=== PATIENT | male | born 1970 | race Caucasian/White ===

== ENCOUNTER 2018-11-22 12:15 | Emergency (ER) | payer OTHER ==
[2018-11-22 12:22] VITALS: TEMP 98.5; BMI 30.6
[2018-11-22] MEDS ORDERED: ASPIRIN 81 MG CHEWABLE TABLETS PO ONE (13:05)
--- NOTE | 2018-11-22 13:11 | PDOC ---
History of Present Illness - General Chief Complaint: Pain Stated Complaint: L SIDE SHOULDER AND CHEST PAIN History Source: Patient Exam Limitations: No Limitations - History of Present Illness Initial Comments: 11/22/18 13:05 48 yo male h/o hypothyroid, HLD (on simvastatin) previous smoker quit 10 yrs ago here today for intermittent sharp left arm pain,and epsodic chest pain. pt states has been having intermittent chest pain in his left arm . not related to trauma or movement. awoke him from sleep, and had episode while driving. no nubmness. pain is sharp, unable to characterize. no cough no f/c no sob. no leg swelling. pt has had a prior cardiac work up of stress few years ago under dr joanne mcmullen. was normal. family history of mom with CABG in her 50s and maternal uncle with VT in 30's . no recent travel or h/o pe or dvt. sharp , not pleuritic 11/22/18 13:11 Past History - Past Medical History Allergies/Adverse Reactions: Allergies Allergy/AdvReac Type Severity Reaction Status Date / Time No Known Allergies Allergy Verified 11/22/18 12:17 COPD: No Hypercholesterolemia: Yes Thyroid Disease: Yes (hypo) - Suicide/Smoking/Psychosocial Hx Smoking History: Former smoker Have you smoked in the past 12 months: No If you are a former smoker, when did you quit?: 20 years ago Information on smoking cessation initiated: No Hx Alcohol Use: Yes (socially) Drug/Substance Use Hx: No Review of Systems - Review of Systems Constitutional: No: Chills, Diaphoresis, Fever HEENTM: No: Eye Pain Respiratory: No: Orthopnea, Shortness of Breath Cardiac (ROS): Yes: Chest Pain ABD/GI: No: Abdominal Distended : No: Burning, Dysuria, Discharge Musculoskeletal: No: Back Pain, Gout Integumentary: No: Bruising, Change in Color Neurological: No: Headache, Numbness, Paresthesia Psychiatric: No: Frequent Crying, Stressors, Sleep Pattern Change All Other Systems: Reviewed and Negative *Physical Exam - Vital Signs Last Vital Signs Temp Pulse Resp BP Pulse Ox 98.5 F 67 18 135/83 98 11/22/18 12:16 11/22/18 12:16 11/22/18 12:16 11/22/18 12:16 11/22/18 12:16 - Physical Exam Comments: 11/22/18 13:12 awake alert lungs clear bilaterally heart rrr no mrg abd soft nt no pulsatile mass. ext wwp no edema. pulses symmetric bilaterally. skin warm and dry. nuero alert oriented x 3. Moderate Sedation - Procedure Monitoring Vital Signs: Procedure Monitoring Vital Signs Temperature 98.5 F 11/22/18 12:16 Pulse Rate 67 11/22/18 12:16 Respiratory Rate 18 11/22/18 12:16 Blood Pressure 135/83 11/22/18 12:16 O2 Sat by Pulse Oximetry (%) 98 11/22/18 12:16 Heart Score/ECG Review #1 General ECG Interpretation: Sinus Rhythm, Normal Rate (63), Normal Intervals, No acute ischemic changes (TWI III only) ED Treatment Course - LABORATORY CBC & Chemistry Diagram: 11/22/18 13:37 11/22/18 13:37 - RADIOLOGY Radiology Studies Ordered: Category Date Time Status CHEST PA & LAT [RAD] Stat Radiology 11/22/18 13:04 Ordered Medical Decision Making - Medical Decision Making 11/22/18 13:16 48 yo male with h/o hld, hypothyroid, here with intermittent chest pain and left arm. pain. not reproducible on exam. differential VT acs, infection, msk pain ( although not reproducible), no risk factors for PE. plan ekg trop cbc cmp cxr. ekg asa. will require admission tele obs. 11/22/18 16:32 d/w dr olivera who will see pt this week. will refer to outpt cardiology given number for dr Silverio also. *DC/Admit/Observation/Transfer Diagnosis at time of Disposition: Chest pain - Discharge Dispostion Disposition: HOME Condition at time of disposition: Improved - Referrals Referrals: Venkat Ramírez MD [Staff Physician] - - Patient Instructions Printed Discharge Instructions: DI for Chest Pain Additional Instructions: your blood test today, ekg and cxr are unremarkable. you should follow up with a primary doctor this week as scheduled. return immediately for chest pain, shortness of breath or any concerns. you should take baby aspirin daily. also you should follow up with a typing teacher. see referral information for Dr Ramírez. call to schedule. - Post Discharge Activity
[2018-11-22] MEDS ORDERED: ASPIRIN 81 MG CHEWABLE TABLETS ONE (13:19)
[2018-11-22 13:42] LABS: BASO % 0.6 % (0-2.0); EOS % 1.6 % (0-4.5); HEMATOCRIT 45.2 % (35.4-49); HEMOGLOBIN 14.9 GM/dl (11.7-16.9); LYMPH % 26.4 % (8-40); MEAN CELL VOLUME 87.7 fl (80-96); MONO % 8.4 % (3.8-10.2); PLATELET COUNT 220 K/MM3 (134-434); RBC 5.15 M/mm3 (4.00-5.60); RDW 13.2 % (11.9-15.9); WHITE BLOOD COUNT 5.3 K/mm3 (4.0-10.8)
[2018-11-22 14:10] LABS: ALBUMIN 4.4 g/dl (3.4-5.0); ALK PHOS 62 U/L (45-117); ANION GAP 9 MMOL/L (8-16); BILIRUBIN,TOTAL 0.9 mg/dl (0.2-1); BLOOD UREA NITROGEN 16 mg/dl (7-18); CALCIUM 9.3 mg/dl (8.5-10); CHLORIDE 103 mmol/L (98-107); CO2 26 mmol/L (21-32); CREATININE 0.9 mg/dl (0.55-1.3); GLUCOSE,RANDOM 87 mg/dl (74-106); POTASSIUM 4.1 mmol/L (3.5-5.1); SGOT/AST 24 U/L (15-37); SGPT/ALT 26 U/L (13-61); SODIUM 138 mmol/L (136-145); TOT PROT 7.7 g/dl (6.4-8.2)
[2018-11-22 15:37] VITALS: BP 109/71; PULSE 64
--- NOTE | 2018-11-23 12:45 | EKG ---
Test Reason : Blood Pressure : / mmHG Vent. Rate : 063 BPM Atrial Rate : 063 BPM P-R Int : 194 ms QRS Dur : 088 ms QT Int : 398 ms P-R-T Axes : 018 030 013 degrees QTc Int : 407 ms POOR DATA QUALITY, INTERPRETATION MAY BE ADVERSELY AFFECTED NORMAL SINUS RHYTHM NORMAL ECG NO PREVIOUS ECGS AVAILABLE Confirmed by MACKENZIE QUINTANILLA MD ([id number]) on 11/23/2018 12:45:02 PM Referred By: CIRILO AGUILAR Confirmed By:MACKENZIE QUINTANILLA MD
== END 2018-11-22 16:48 | disposition home or self-care (01) ==
LOC: FER 12:15
DX: R07.9 Chest pain, unspecified (principal); E03.9 Hypothyroidism, unspecified; E78.5 Hyperlipidemia, unspecified
CPT/HCPCS: 36415; 71046-TC-FY; 80053; 84484; 85025; 93005; 99283-25

== ENCOUNTER 2020-04-01 08:27 | Day surgery (SDC) | payer OTHER ==
[2020-04-01] MEDS ORDERED: TAMSULOSIN HCL 0.4 MG CAP ONE (08:43)
[2020-04-01 08:54] VITALS: BMI 30.8
[2020-04-01] MEDS ORDERED: ROPIVACAINE HCL 0.5% 30ML VIAL ONE (09:35)
[2020-04-01] MEDS ORDERED: MIDAZOLAM HCL 2 MG/2 ML SINGLE DOSE VIAL ONE (09:35)
[2020-04-01] MEDS ORDERED: ROCURONIUM BROMIDE 50 MG/5 ML SYRINGE ONE ×2 (10:54→11:17)
[2020-04-01] MEDS ORDERED: PROPOFOL 20 ML ONE ×2 (10:54)
[2020-04-01] MEDS ORDERED: SUCCINYLCHOLINE CHLORIDE 200 MG/10 ML SYRINGE ONE (10:54)
[2020-04-01] MEDS ORDERED: fentaNYL CITRATE 250 MCG/5 ML VIAL ONE (10:54)
[2020-04-01] MEDS ORDERED: DEXAMETHASONE SOD PHOSPHATE 4 MG/1 ML VIAL ONE (11:04)
[2020-04-01] MEDS ORDERED: ceFAZolin SODIUM 1 GM VIAL ONE (11:04)
[2020-04-01] MEDS ORDERED: LIDOCAINE HCL 2% JELLY (5 ML/TUBE) ONE (11:04)
[2020-04-01] MEDS ORDERED: ONDANSETRON 4 MG/2 ML VIAL ONE (11:04)
[2020-04-01] MEDS ORDERED: LIDOCAINE HCL/PF 2% SDV 5ML VIAL ONE (11:04)
[2020-04-01] MEDS ORDERED: KETOROLAC TROMETHAMINE 30 MG/1 ML VIAL ONE (11:04)
[2020-04-01] MEDS ORDERED: NEOSTIGMINE METHYLSULFATE 0.5 MG/ML - 10 ML MDV ONE (12:01)
[2020-04-01] MEDS ORDERED: GLYCOPYRROLATE 0.2 MG/1 ML VIAL ONE (12:02)
[2020-04-01] MEDS ORDERED: ONDANSETRON 4 MG/2 ML VIAL IVPUSH PRN (13:06)
[2020-04-01] MEDS ORDERED: oxyCODONE HCL 5 MG TABLET PO PRN ×2 (13:06)
[2020-04-01] MEDS ORDERED: LACTATED RINGERS SOLUTION 1,000 ML IV SCH (13:15)
[2020-04-01 15:27] VITALS: TEMP 98.2
[2020-04-01 15:28] VITALS: BP 124/80; PULSE 64
== END 2020-04-01 15:37 | disposition home or self-care (01) ==
LOC: FASU 08:27
PROVIDERS: ATTEND Surgery
PROC: 0YUA4JZ Supplement Bilateral Inguinal Region with Synthetic Substitute, Percutaneous Endoscopic Approach (ICD-10-PCS; principal; 2020-04-01 10:55)
DX: K40.30 Unilateral inguinal hernia, with obstruction, without gangrene, not specified as recurrent (principal); K40.20 Bilateral inguinal hernia, without obstruction or gangrene, not specified as recurrent
CPT/HCPCS: 94760

== ENCOUNTER 2021-07-01 13:27 | Emergency (ER) | payer OTHER ==
[2021-07-01 13:50] VITALS: BMI 31.8
[2021-07-01] MEDS ORDERED: ASPIRIN 81 MG CHEWABLE TABLETS PO ONE (14:09)
[2021-07-01] MEDS ORDERED: ASPIRIN 81 MG CHEWABLE TABLETS ONE (14:18)
[2021-07-01 14:47] LABS: ALBUMIN 4.3 g/dl (3.4-5.0); BILIRUBIN,TOTAL 0.7 mg/dl (0.2-1); CALCIUM 9.1 mg/dl (8.5-10); CREATININE 0.9 mg/dl (0.55-1.3); TOT PROT 7.7 g/dl (6.4-8.2)
[2021-07-01 14:52] LABS: ACTIVATED PTT 29.8 SECONDS (25.2-36.5)
[2021-07-01 14:56] LABS: INR 1.08 (0.82-1.09); PROTHROMBIN TIME (PATIENT) 12.1 SEC (10.2-13.0)
[2021-07-01 14:59] LABS: BASO % 2.4 % (0-2.0); HEMATOCRIT 45.6 % (35.4-49); HEMOGLOBIN 15.2 GM/dl (11.7-16.9); MCH 29.3 pg (25.7-33.7); MCHC 33.3 g/dl (32.0-35.9); MEAN CELL VOLUME 87.8 fl (80-96); MEAN PLT VOLUME 7.5 fl (7.5-11.1); MONO % 10.1 % (3.8-10.2); NEUT % 64.5 % (42.8-82.8); PLATELET COUNT 217 10^3/uL (134-434); RBC 5.19 M/mm3 (4.00-5.60); RDW 13.5 % (11.9-15.9); WHITE BLOOD COUNT 5.7 K/mm3 (4.0-10.8)
[2021-07-02 06:50] VITALS: PULSE 66; TEMP 98
[2021-07-02 13:20] VITALS: BP 125/65
== END 2021-07-02 14:40 | disposition short-term general hospital (02) ==
LOC: FER 13:27
DX: I20.0 Unstable angina (principal)
CPT/HCPCS: 36415; 71046-TC-FY; 80053; 82550; 84484; 85025; 85610; 85730; 93005; 93010; 99284-25; C9803; U0003; U0005

== ENCOUNTER 2022-01-24 07:31 | Emergency (ER) | payer OTHER ==
[2022-01-24 07:52] VITALS: BP 140/92; PULSE 76; TEMP 97.9; BMI 34.9
[2022-01-24 08:20] LABS: HEMATOCRIT 44.1 % (35.4-49); HEMOGLOBIN 15.2 G/dL (11.7-16.9); MCHC 34.4 g/dl (32.0-35.9); MEAN CELL VOLUME 84.3 fl (80-96); MEAN PLT VOLUME 7.1 fl (7.5-11.1); PLATELET COUNT 155.4 10^3/uL (134-434); RBC 5.23 10^6/uL (4.00-5.60); RDW 15.2 % (11.9-15.9); WHITE BLOOD COUNT 4.5 10^3/uL (4.0-10.8)
[2022-01-24 08:52] LABS: ALBUMIN 4.1 g/dl (3.4-5.0); ALK PHOS 64 U/L (45-117); ANION GAP 6 MMOL/L (8-16); BILIRUBIN,TOTAL 0.7 mg/dl (0.2-1); CALCIUM 9.3 mg/dl (8.5-10); CHLORIDE 104 mmol/L (98-107); CO2 26 mmol/L (21-32); CREATININE 0.8 mg/dl (0.55-1.3); GLUCOSE,RANDOM 98 mg/dl (74-106); SGOT/AST 23 U/L (15-37); SGPT/ALT 35 U/L (13-61); SODIUM 136 mmol/L (136-145); TOT PROT 7.2 g/dl (6.4-8.2)
[2022-01-24 13:25] LABS: ANISOCYTOSIS FEW; PLATELET ESTIMATE ADEQUATE
== END 2022-01-24 12:00 | disposition home or self-care (01) ==
LOC: FER 07:31
DX: R42 Dizziness and giddiness (principal)
CPT/HCPCS: 36415; 71045-TC-FY; 80053; 84484; 85027; 93005; 99285-25

== ENCOUNTER 2022-04-15 09:30 | Emergency (ER) | payer OTHER ==
[2022-04-15 09:41] VITALS: BP 134/85; PULSE 84; TEMP 98.5; BMI 34.2
[2022-04-15] MEDS ORDERED: DIPHTH,PERTUSS(ACELL),TET 0.5 ML DISP.SYRIN IM ONE ×2 (09:57→09:58)
[2022-04-15] MEDS ORDERED: LIDOCAINE HCL 2% (50ML VIAL) INF ONE (10:21)
[2022-04-15] MEDS ORDERED: LIDOCAINE HCL 2% (20ML MULTI-DOSE VIAL) ONE ×2 (10:29→10:37)
== END 2022-04-15 11:34 | disposition home or self-care (01) ==
LOC: FER 09:30
PROC: 3E0233Z Introduction of Anti-inflammatory into Muscle, Percutaneous Approach (ICD-10-PCS; principal; 2022-04-15)
DX: S61.212A Laceration without foreign body of right middle finger without damage to nail, initial encounter (principal); W29.8XXA Contact with other powered hand tools and household machinery, initial encounter
CPT/HCPCS: 90715; 99284-25

== ENCOUNTER 2024-01-30 10:28 | Emergency (ER) | payer OTHER ==
[2024-01-30 10:34] VITALS: BP 131/89; PULSE 83; RESP 18; TEMP 98.3; BMI 34.9
[2024-01-30] MEDS ORDERED: CEPHALEXIN MONOHYDRATE 500 MG CAPSULE (UD) ONE (11:20)
[2024-01-30] MEDS: CEPHALEXIN MONOHYDRATE 500 MG CAPSULE (UD) PO ONE (11:23)
== END 2024-01-30 11:27 | disposition home or self-care (01) ==
LOC: FER 10:28
DX: L03.115 Cellulitis of right lower limb (principal); M25.461 Effusion, right knee
CPT/HCPCS: 99283-25

== ENCOUNTER 2024-02-01 18:43 | Emergency (ER) | payer OTHER ==
[2024-02-01 18:51] VITALS: BP 131/90; PULSE 88; RESP 16; TEMP 97.7; BMI 34.9
[2024-02-01] MEDS ORDERED: DALBAVANCIN HCL 500 MG VIAL (RESTRICTED TO ID ONLY) IVPB ONE (19:23)
[2024-02-01] MEDS: DALBAVANCIN HCL 1,500 MG in DEXTROSE 5%-WATER - 500 ML IVPB ONE (19:53)
[2024-02-01 20:03] LABS: HEMATOCRIT 46.6 % (35.4-49); HEMOGLOBIN 15.3 G/dL (11.7-16.9); MCH 28.2 pg (25.7-33.7); MCHC 32.8 g/dl (32.0-35.9); MEAN CELL VOLUME 86.2 fl (80-96); MEAN PLT VOLUME 8.2 fl (7.5-11.1); PLATELET COUNT 200.9 10^3/uL (134-434); RBC 5.41 10^6/uL (4.00-5.60); RDW 14.4 % (11.9-15.9); WHITE BLOOD COUNT 8.1 10^3/uL (4.0-10.8)
[2024-02-01 20:21] LABS: ALBUMIN 4.4 g/dl (3.4-5.0); BILIRUBIN,TOTAL 0.6 mg/dl (0.2-1); CALCIUM 9.3 mg/dl (8.5-10.1); CREATININE 0.8 mg/dl (0.6-1.3); POTASSIUM 4.1 mmol/L (3.5-5.1); TOT PROT 7.8 g/dl (6.4-8.2)
== END 2024-02-01 20:56 | disposition home or self-care (01) ==
LOC: FER 18:43
DX: L03.115 Cellulitis of right lower limb (principal)
CPT/HCPCS: 36415; 76882-TC-RT-FY; 80053; 85027; 87040; 99284-25; J0875